=== PATIENT | male | born 1980 | race Caucasian/White ===

== ENCOUNTER 2016-10-16 13:02 | Emergency (ER) | payer BC, OTHER ==
[2016-10-16 13:31] VITALS: BP 123/80; PULSE 84; TEMP 98.6; BMI 27.3
[2016-10-16] MEDS ORDERED: KETOROLAC TROMETHAMINE 30 MG/1 ML VIAL IM ONE (14:25)
--- NOTE | 2016-10-16 14:28 | PDOC ---
History of Present Illness - General History Source: Patient, Old Records Exam Limitations: No Limitations - History of Present Illness Initial Comments: 10/16/16 14:51 The patient is a 36 year old male with no significant past medical history who ambulates to the emergency department today with neck pain for 4 days. The patient was in the pool at his parents house in [place] and heard a pop in his neck when he was shaking his head to get the water out of his ear. The patient went to an urgent care in [place] where he was given a muscle relaxant injection and sent home with a prescription of Cyclobenzaprine. The patient states that his pain had been managed but has been worsening today. The patient denies any loss of sensation in his extremities. <Salomón Lancaster - Last Filed: 10/16/16 15:53> <Lloyd Martines - Last Filed: 10/16/16 16:31> - General Chief Complaint: Pain Stated Complaint: NECK PAIN Time Seen by Provider: 10/16/16 13:31 Past History <Salomón Lancaster - Last Filed: 10/16/16 15:53> - Psycho/Social/Smoking Cessation Hx Anxiety: No Suicidal Ideation: No Smoking History: Former smoker Have you smoked in the past 12 months: Yes If you are a former smoker, when did you quit?: OCTOBER 2016 Information on smoking cessation initiated: Yes 'Breaking Loose' booklet given: 10/16/16 Hx Alcohol Use: Yes (OCCASIONAL) Drug/Substance Use Hx: No Substance Use Type: None <Lloyd Martines - Last Filed: 10/16/16 16:31> - Past Medical History Allergies/Adverse Reactions: Allergies Allergy/AdvReac Type Severity Reaction Status Date / Time Penicillins Allergy Mild Rash Verified 10/16/16 13:17 Home Medications: Ambulatory Orders Metaxalone [Skelaxin] 800 mg PO TID PRN #30 tablet 10/16/16 Nabumetone 750 mg PO BID PRN #20 tablet 10/16/16 Review of Systems - Review of Systems Able to Perform ROS?: Yes Comments:: 10/16/16 14:51 CONSTITUTIONAL: Absent: Fever, Chills, Diaphoresis, Generalized Weakness, Malaise, Loss of Appetite HEENT: Absent: Rhinorrhea, Nasal Congestion, Throat Pain, Throat Swelling, Difficulty Swallowing, Mouth Swelling, Ear Pain, Eye Pain, Visual Changes CARDIOVASCULAR: Absent: Chest Pain, Syncope, Palpitations, Irregular Heart Rate, Lightheadedness , Peripheral Edema RESPIRATORY: Absent: Cough, Shortness of Breath, SOB with Exertion, Orthopnea, Wheezing, Stridor, Hemoptysis GASTROINTESTINAL: Absent: Abdominal pain, Abdominal Distension, Nausea, Vomiting, Diarrhea, Constipation, Melena, Hematochezia GENITOURINARY: Absent: Dysuria, Frequency, Urgency, Hesitancy, Flank Pain, Genital Pain MUSCULOSKELETAL: Present: Neck pain Absent: Loss of sensation of extremities. SKIN: Absent: Rash, Itching, PalloR HEMEATOLOGIC/IMMUNOLOGIC: Absent: Easy Bleeding, Easy Bruising, Lymphadenopathy, Frequent infections ENDOCRINE: Absent: Unexplained Weight Gain, Unexplained Weight Loss, Heat Intolerance, Cold Intolerance NEUROLOGIC: Absent: Headache, Focal Weakness, Paresthesias, Vertigo, Lightheadedness, Unsteady Gait, Seizure, Mental Status Changes, Incontinence PSYCHIATRIC: Absent: Anxiety, Depression <Salomón Lancaster - Last Filed: 10/16/16 15:53> *Physical Exam - Vital Signs Last Vital Signs Temp Pulse Resp BP Pulse Ox 98.6 F 84 15 123/80 99 10/16/16 13:10 10/16/16 13:10 10/16/16 13:10 10/16/16 13:10 10/16/16 13:10 - Physical Exam Comments: 10/16/16 14:51 GENERAL: The patient is awake, alert, and fully oriented, in no acute distress. HEAD: Normal with no signs of trauma. EYES: Pupils equal, round and reactive to light, extraocular movements intact, sclera anicteric, conjunctiva clear. ENT: Ears normal, nares patent, oropharynx clear without exudates. Moist mucous membranes. NECK: (+) Normal range of motion, right trapezius tenderness. No cervical spine tenderness. without lymphadenopathy, JVD, or masses. LUNGS: Breath sounds equal, clear to auscultation bilaterally. No wheezes, and no crackles. HEART: Regular rate and rhythm, normal S1 and S2 without murmur, rub or gallop. ABDOMEN: Soft, nontender, normoactive bowel sounds. No guarding, no rebound. No masses. EXTREMITIES: Normal range of motion, no edema. No clubbing or cyanosis. No cords , erythema, or tenderness. Normal strength and sensation. NEUROLOGICAL: Cranial nerves II through XII grossly intact. Normal speech, normal gait. PSYCH: Normal mood, normal affect. SKIN: Warm, Dry, normal turgor, no rashes or lesions noted. <Salomón Lancaster - Last Filed: 10/16/16 15:53> - Vital Signs Last Vital Signs Temp Pulse Resp BP Pulse Ox 98.6 F 84 15 123/80 99 10/16/16 13:10 10/16/16 13:10 10/16/16 13:10 10/16/16 13:10 10/16/16 13:10 <Lloyd Martines - Last Filed: 10/16/16 16:31> ED Treatment Course - RADIOLOGY Radiograph Interpretation: 10/16/16 15:53 EXAM#: TYPE/EXAM: RESULT: [id number] RAD/SPINE-CERVICAL Cervical spine: Neck pain. An open-mouth view shows a normal C1-C2 articulation. The AP view shows a midline trachea with clear apices. Lateral imaging shows C1-C7 to be intact. There is no sign of blastic or lytic changes and no sign of fracture or subluxation. There is faint visualization of the top of T1. The prevertebral soft tissues and sella appear intact. Intervertebral disc spaces are unremarkable. Impression: No acute pathology. If symptoms persist, further imaging may be of help. Reported By: Jax Espinal MD 10/16/16 1545 - Medications Given in the ED: ED Medications Discontinued Medications Generic Name Dose Route Start Last Admin Trade Name Freq PRN Reason Stop Dose Admin Ketorolac Tromethamine 30 mg 10/16/16 14:25 10/16/16 14:40 Toradol Injection - IM 10/16/16 14:26 30 mg ONCE ONE Administration <Salomón Lancaster - Last Filed: 10/16/16 15:53> - RADIOLOGY Radiology Studies Ordered: Category Date Time Status SPINE-CERVICAL [RAD] Stat Radiology 10/16/16 14:24 Ordered <Lloyd Martines - Last Filed: 10/16/16 16:31> Medical Decision Making - Medical Decision Making 10/16/16 16:20 X-rays of the cervical spine show no acute pathology. Reviewed by me and radiology. Impression: Cervical sprain. Plan: Symptomatic treatment. <Lloyd Martines - Last Filed: 10/16/16 16:31> *DC/Admit/Observation/Transfer - Attestations Scribe Attestion: 10/16/16 14:51 Documentation prepared by Salomón Lancaster, acting as senior medical technologist for Lloyd Martines MD. <Salomón Lancaster - Last Filed: 10/16/16 15:53> - Discharge Dispostion Admit: No <Lloyd Martines - Last Filed: 10/16/16 16:31> Diagnosis at time of Disposition: Cervical sprain Qualifiers: Encounter type: initial encounter Qualified Code(s): S13.9XXA - Sprain of joints and ligaments of unspecified parts of neck, initial encounter - Discharge Dispostion Disposition: HOME Condition at time of disposition: Good - Prescriptions Prescriptions: Nabumetone 750 mg PO BID PRN #20 tablet PRN Reason: Pain Metaxalone [Skelaxin] 800 mg PO TID PRN #30 tablet PRN Reason: pain and spasm - Patient Instructions Printed Discharge Instructions: DI for Neck Sprain Additional Instructions: You were evaluated today for neck pain. The x-rays show no fractures or dislocation. Stop the current medication and start the new medication. You have been prescribed nabumetone twice a day along with Skelaxin 3 times a day as needed for pain. Use a warm heating pad to help with the muscle spasm. Follow-up with your primary care physician in the coming week if the pain is not resolving. Return to the emergency department for any severe or progressive symptoms.
[2016-10-16] MEDS ORDERED: KETOROLAC TROMETHAMINE 30 MG/1 ML VIAL ONE (14:36)
== END 2016-10-16 16:35 | disposition home or self-care (01) ==
LOC: FER 13:02
PROC: 3E0233Z Introduction of Anti-inflammatory into Muscle, Percutaneous Approach (ICD-10-PCS; principal; 2016-10-16)
DX: S13.9XXA Sprain of joints and ligaments of unspecified parts of neck, initial encounter (principal); X58.XXXA Exposure to other specified factors, initial encounter; Y93.89 Activity, other specified; Y92.34 Swimming pool (public) as the place of occurrence of the external cause; Z87.891 Personal history of nicotine dependence
CPT/HCPCS: 72050-TC; 99282-25

== ENCOUNTER 2018-08-28 10:25 | Emergency (ER) | payer BC, OTHER | END 2018-08-28 11:35 | disposition home or self-care (01) | LOC: FER 10:25 ==